=== PATIENT | female | born 1950 | race Caucasian/White ===

== ENCOUNTER → 2019-08-18 14:50 | Outpatient (CLI) | payer OTHER | END | disposition home or self-care (01) | LOC: LAB 14:50 | DX: L02.415 Cutaneous abscess of right lower limb (principal) ==

== ENCOUNTER 2023-03-27 09:10 | Emergency (ER) | payer OTHER ==
[~2023-03-27] VITALS: Ht 149.9 cm; Wt 61.7 kg
[2023-03-27] MEDS ORDERED: MAXIMUM D3325 MCG PO (09:28)
[2023-03-27] MEDS ORDERED: SIMVASTATIN20 MG PO (09:28)
[2023-03-27] MEDS ORDERED: CICLOPIROX15 GM TP (09:29)
== END 2023-03-27 13:37 | disposition home or self-care (01) ==
LOC: ER 09:10
DX: N39.0 Urinary tract infection, site not specified (principal); R10.9 Unspecified abdominal pain; Z91.013 Allergy to seafood; Z91.012 Allergy to eggs; Z88.6 Allergy status to analgesic agent; Z91.018 Allergy to other foods; K21.9 Gastro-esophageal reflux disease without esophagitis; Z87.19 Personal history of other diseases of the digestive system; K57.32 Diverticulitis of large intestine without perforation or abscess without bleeding